=== PATIENT | female | born 1970 | race Caucasian/White ===

== ENCOUNTER 2016-12-14 19:32 | Emergency (ER) | payer BC ==
[2016-12-14] MEDS ORDERED: Morphine INJ* 2 MG/ML 1 ML SYRINGE IV ONE (20:21)
[2016-12-14] MEDS ORDERED: LORazepam INJ* 2 MG/ML 1 ML VIAL IV PUSH ONE (20:21)
[2016-12-14] MEDS ORDERED: Ketorolac INJ* 60 MG/2 ML VIAL IM ONE (20:46)
--- NOTE | 2016-12-14 20:47 | ED ---
Charmaine Mathew Thomas, scribed for Teo Estrada MD on 12/14/16 at 2019 . Abdominal Pain/Female - HPI Summary HPI Summary: The pt is a 46 y/o F presenting to the ED c/o severe menstrual cramps that began today at 19:30 when she was at work at [employer]. 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 The patient has had prior episodes of severe menstrual cramps. The patient has treated the pain with ibuprofen [employer], although this has not alleviated pain. PMHx: fibroids. PSHx: ablation (2013). SHx: no smoking, occasional alcohol use. FHx: endometriosis. Typically, she treats her pain with ibuprofen and Flexeril. After her ablation, her period stopped, although it eventually resumed. She reports that the last time an ultrasound was performed in 2013. She reports that she intends to eventually schedule a hysterectomy. - History of Current Complaint Chief Complaint: EDAbdPain Stated Complaint: ABD PAIN Time Seen by Provider: 12/14/16 20:08 Hx Obtained From: Patient Onset/Duration: Sudden Onset, Lasting Hours - onset today at 19:30, Still Present Timing: Constant Severity Initially: Severe Location: Other - lower Aggravating Factor(s): Nothing Alleviating Factor(s): Nothing Associated Signs and Symptoms: Negative: Fever Allergies/Adverse Reactions: Allergies Allergy/AdvReac Type Severity Reaction Status Date / Time Latex Allergy See Comment Verified 12/14/16 20:15 PMH/Surg Hx/FS Hx/Imm Hx Previously Healthy: No Cardiovascular History: Denies: Hx Congestive Heart Failure History: Reports: Other Problems/Disorders - Hx fibroids - Surgical History Surgery Procedure, Year, and Place: Ablation (2013) Infectious Disease History: Denies: Traveled Outside the [place] in Last 30 Days - Family History Known Family History: Positive: Other - POS: mother had fibroids - Social History Alcohol Use: Occasionally Hx Tobacco Use: No Smoking Status (MU): Never Smoked Tobacco Review of Systems Negative: Other - NEG: respiratory distress Positive: Abdominal Pain - lower, attributed to severe menstrual cramping All Other Systems Reviewed And Are Negative: Yes Physical Exam Triage Information Reviewed: Yes Vital Signs On Initial Exam: Initial Vitals Temp Pulse Resp BP Pulse Ox 98.4 F 77 16 118/76 99 12/14/16 20:13 12/14/16 20:13 12/14/16 20:13 12/14/16 20:13 12/14/16 20:13 Vital Signs Reviewed: Yes Appearance: Positive: Well-Appearing, Pain Distress - moderate Skin: Positive: Warm ENT: Positive: Hearing grossly normal Respiratory/Lung Sounds: Positive: Breath Sounds Present Cardiovascular: Positive: RRR Abdomen Description: Positive: Nontender, Soft Bowel Sounds: Positive: Present Neurological: Positive: Alert, Oriented to Person Place, Time Psychiatric: Positive: Affect/Mood Appropriate Diagnostics - Vital Signs Vital Signs Temp Pulse Resp BP Pulse Ox 12/14/16 20:24 72 99 12/14/16 20:22 118/76 12/14/16 20:13 98.4 F 77 16 118/76 99 - Laboratory Lab Statement: Any lab studies that have been ordered have been reviewed, and results considered in the medical decision making process. 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 The patient has had prior episodes of severe menstrual cramps. The patient has treated the pain with ibuprofen [employer], although this has not alleviated pain. PMHx: fibroids. PSHx: ablation (2013). SHx: no smoking, occasional alcohol use. FHx: endometriosis. Typically, she treats her pain with ibuprofen and Flexeril. After her ablation, her period stopped, although it eventually resumed. She reports that the last time an ultrasound was performed in 2013. She reports that she intends to eventually schedule a hysterectomy. In the ED course the patient was given Ativan and Morphine. Patient is diagnosed with pelvic pain. Patient will be discharged home with follow up by OBGYN. Patient is agreeable to this plan. - Diagnoses Provider Diagnoses: Pelvic pain Discharge - Discharge Plan Condition: Stable Disposition: HOME Patient Education Materials: Pelvic Pain in Women (ED) Referrals: Miriam Vizcaino PA [Primary Care Provider] - Additional Instructions: Follow up with your OBGYN. The documentation as recorded by the scribe, Charmaine,Norbert accurately reflects the service I personally performed and the decisions made by me, Teo Estrada MD.
[2016-12-14 21:28] VITALS: BP 114/74
== END 2016-12-14 21:25 | disposition home or self-care (01) ==
LOC: ED 19:32
DX: R10.2 Pelvic and perineal pain (principal); Z87.42 Personal history of other diseases of the female genital tract; Z98.890 Other specified postprocedural states
CPT/HCPCS: 96372; 96374; 96375; 99283; J1885; J2060; J2270